=== PATIENT | female | born 1995 | race Caucasian/White ===

== ENCOUNTER 2017-12-11 14:19 | Outpatient (CLI) | payer BC ==
[2017-12-11 14:49] LABS: Appearance,Urine Clear (Clear); Bacteria,Urine Rare /hpf; Bilirubin,Urine Negative (Negative); Blood,Urine Small (Negative); Color,Urine Colorless; Glucose,Urine (UA) Negative (Negative); Ketones,Urine Negative (Negative); Leukocyte Esterase,Urine Negative (Negative); Nitrite,Urine Negative (Negative); Protein,Urine Negative (Negative); RBC,Urine <1 /hpf (0-5); Specific Gravity,Urine 1.003 (1.001-1.035); Squamous Epithelial Cell,Urine <1 /hpf (0-4); Urobilinogen,Urine <2.0 mg/dL (<2.0); WBC,Urine <1 /hpf (0-5)
[2017-12-11 15:39] LABS: ALT 31 U/L (9-52); AST 24 U/L (14-36); Blood Urea Nitrogen 10 mg/dL (7-17); LDH 463 U/L (313-618); Uric Acid 3.6 mg/dL (3.7-7.4)
[2017-12-11 15:50] LABS: Basophils % (A) 0 %; Eosinophils # (A) 0.1 k/uL (0-0.7); Eosinophils % (A) 1 %; HCT 36.6 % (34.0-46.0); HGB 12.1 gm/dL (11.4-16.0); Lymphocytes # (A) 1.5 k/uL (1.0-4.8); Lymphocytes % (A) 15 %; MCH 30.5 pg (25.0-35.0); MCHC 33.2 g/dL (31.0-37.0); MCV 91.9 fL (80.0-100.0); Mean Platelet Volume 9.3; Monocytes # (A) 0.6 k/uL (0-1.0); Monocytes % (A) 7 %; Neutrophils # (A) 7.2 k/uL (1.3-7.7); Neutrophils % (A) 75 %; Platelet Count 186 k/uL (150-450); RBC 3.98 m/uL (3.80-5.40); RDW 13.1 % (11.5-15.5); WBC 9.6 k/uL (3.8-10.6)
[2017-12-11 16:07] VITALS: BP 144/81; PULSE 68; RESP 16; TEMP 97.8
--- NOTE | 2017-12-20 19:37 | P.MSEPDOC ---
Presenting Problems - Arrival Data Date of Arrival on Unit: 12/11/17 Time of Arrival on Unit: 14:19 Mode of Transport: Ambulatory - Complaint OB-Reason for Admission/Chief Complaint: PIH Comment: Pt sent from [facility] for PIH work up, NST and serial BP Medical History - Information : 1 Para: 0 Term: 0 : 0 Abortions: Spontaneous or Elective: 0 Number of Living Children: 0 - Gestational Age Gestational Age by SUSIE (wks/days): 37 Weeks and 5 Days Review of Systems - Review of Systems Constitutional: No problems Breast: No problems ENT: No problems Cardiovascular: No problems Respiratory: No problems Gastrointestinal: No problems Genitourinary: No problems Musculoskeletal: No problems Neurological: No problems Skin: No problems Vital Signs - Temperature Temperature: 97.8 F Temperature Source: Temporal Artery Scan - Pulse Right Sitting Brachial Pulse Rate: 68 Pulse Assessment Method: Automatic Cuff - Respirations Respiratory Rate: 16 Oxygen Delivery Method: Room Air O2 Sat by Pulse Oximetry: 99 - Blood Pressure Right Arm Sitting Blood Pressure: 144/81 Blood Pressure Mean: 102 Blood Pressure Source: Automatic Cuff Medical Screen Scoring (Pre) - Cervical Exam Dilation: Exam Deferred Effacement: Exam Deferred Membranes: Intact - Uterine Contractions Frequency: N/A Duration: N/A Intensity: N/A - Maternal Vital Signs Maternal Temperature: N/A Maternal Blood Pressure: N/A Signs of Preeclampsia: N/A Maternal Respirations: N/A - Maternal Trauma Maternal Trauma: N/A - Assessment Baseline FHR: 120 Heart Rate - NICHD Category: Category I (Normal) = 0 NST: Reactive Position: N/A Station: N/A - Total Score Total Score (Pre): 0 - Level of Risk Level of Risk: Low (0-5) Physician Notification (Pre) - Physician Notified Physician Notified Date: 12/11/17 Physician Notified Time: 15:55 Physician/Practitioner Notifed:: Ayla Spoke With: Ayla New Order Received: Yes - Notification Comment Comment: Reviewed serial BPs, PIH labs, UA and FHT- reactive NST. States pt may be d/c home, to follow up in 1 week, preeclampsia s/sx and labor discharge education. Disposition - Disposition OB Disposition: Discharge to home, Written follow up instructions reviewed Discharge Date: 12/11/17 Discharge Time: 16:00 I agree with the RN Medical Screening Exam: Yes Risk & Benefit of care provided described in d/c instruction: Yes Diagnosis: GESTATIONAL HTN W/O SIGNIFICANT PROTEINURIA, THIRD TRIMESTER
== END 2017-12-11 16:00 | disposition home or self-care (01) ==
LOC: FBPOP 14:19
PROVIDERS: ATTEND Obstetrics & Gynecology Obstetrics
DX: O13.3 Gestational [pregnancy-induced] hypertension without significant proteinuria, third trimester (principal); Z3A.37 37 weeks gestation of pregnancy
CPT/HCPCS: 59025; 81001; 82565; 83615; 84450; 84460; 84520; 84550; 85025; 99215

== ENCOUNTER 2017-12-28 15:09 | Inpatient (IN) | payer BC ==
[2018-01-03] MEDS ORDERED: PENICILLIN G POTASSIUM 5,000,000 UNIT in DEXTROSE 5% IN WATER 100 ML IVPB STA ×2 (06:12)
[2018-01-03] MEDS ORDERED: OXYTOCIN 10 UNIT/ML 1 ML VIAL IM PRN (06:12)
[2018-01-03] MEDS ORDERED: CARBOPROST TROMETHAMINE 250 MCG/ML 1 ML AMP IM PRN (06:12)
[2018-01-03] MEDS ORDERED: TERBUTALINE 1 MG/ML VIAL SQ PRN (06:12)
[2018-01-03] MEDS ORDERED: METHYLERGONOVINE 0.2 MG/ML 1 ML AMP IM PRN (06:12)
[2018-01-03] MEDS ORDERED: LIDOCAINE 1% (PF) 10 MG/ML (30 ML SDV) SQ PRN (06:12)
[2018-01-03 06:25] VITALS: BMI 29.5
[2018-01-03] MEDS: OXYTOCIN 20 UNITS/1000 ML NS 1,000 ML IV SCH (06:34)
[2018-01-03] MEDS: LACTATED RINGERS 1,000 ML IV SCH ×3 (06:35→22:37)
[2018-01-03 06:38] LABS: Basophils % (A) 0 %; Eosinophils # (A) 0.1 k/uL (0-0.7); Eosinophils % (A) 1 %; HCT 38.3 % (34.0-46.0); HGB 13.3 gm/dL (11.4-16.0); Lymphocytes # (A) 1.7 k/uL (1.0-4.8); Lymphocytes % (A) 22 %; MCH 30.9 pg (25.0-35.0); MCHC 34.7 g/dL (31.0-37.0); Mean Platelet Volume 10.3; Monocytes # (A) 0.6 k/uL (0-1.0); Monocytes % (A) 8 %; Neutrophils # (A) 5.3 k/uL (1.3-7.7); Neutrophils % (A) 67 %; Platelet Count 190 k/uL (150-450)
[2018-01-03] MEDS: PENICILLIN G POTASSIUM 2,500,000 UNIT in DEXTROSE 5% IN WATER 100 ML IVPB SCH ×8 (10:28→22:56)
[2018-01-03] MEDS ORDERED: ROPIVACAINE 100 MG, fentaNYL (PF) 200 MCG in SODIUM CHLORIDE 0.9% 76 ML EPIDURAL ONE (22:36)
[2018-01-04] MEDS: PENICILLIN G POTASSIUM 2,500,000 UNIT in DEXTROSE 5% IN WATER 100 ML IVPB SCH ×4 (03:15→06:24)
[2018-01-04] MEDS: OXYTOCIN 20 UNITS/1000 ML NS 1,000 ML IV SCH (08:36)
[2018-01-04] MEDS ORDERED: diphenhydrAMINE 50 MG/ML 1 ML VIAL IVP PRN ×2 (08:49)
[2018-01-04] MEDS ORDERED: WITCH HAZEL 1 EACH MED..PAD TOPICAL PRN (08:49)
[2018-01-04] MEDS ORDERED: diphenhydrAMINE 50 MG CAP PO PRN (08:49)
[2018-01-04] MEDS ORDERED: HYDROCORTISONE 2.5% RECTAL CREAM 30 GM TUBE RECTAL PRN (08:49)
[2018-01-04] MEDS ORDERED: LANOLIN CREAM 5 GM TUBE TOPICAL PRN (08:49)
[2018-01-04] MEDS ORDERED: ZOLPIDEM 5 MG TAB PO PRN (08:49)
[2018-01-04] MEDS ORDERED: BENZOCAINE/MENTHOL SPRAY 1 GM/SPRAY AEROSOL TOPICAL PRN (08:49)
[2018-01-04] MEDS ORDERED: ACETAMINOPHEN TAB 325 MG TAB PO PRN (08:49)
[2018-01-04] MEDS ORDERED: SIMETHICONE 80 MG CHEWABLE PO PRN (08:49)
[2018-01-04] MEDS ORDERED: diphenhydrAMINE 25 MG CAP PO PRN (08:49)
--- NOTE | 2018-01-04 08:53 | P.PROBDLV ---
Vaginal Delivery Note - . Vaginal Delivery Note: This is a very pleasant 22-year-old 1 para 0 at 41 and 1/7 weeks that presented to labor and delivery yesterday for induction of labor secondary to postdates. Patient was begun on Pitocin induction of labor. Amniotomy was performed and clear fluid was obtained. She progressed very slowly through labor eventually becoming uncomfortable around 5 PM and getting an epidural. Patient progressed through the night eventually becoming complete and had a normal spontaneous vaginal delivery of a viable male at 825. Weight of 8 lbs. 4 oz. with Apgars of 9 and 9 at one and 5 minutes respectively. The cord was then doubly clamped and cut the placenta was delivered spontaneously intact with three-vessel cord. The uterus was noted to be firm and below the umbilicus at this time. Inspection the patient's vaginal vault a midline laceration first-degree was noted along with bilateral labial lacerations. These were repaired in the usual fashion with 3-0 repeat, 4-0 chromic. Afterwards inspection revealed hemostasis and no further lacerations. Estimated blood loss 300 mL Patient and infant tolerated delivery well and are resting comfortably.
--- NOTE | 2018-01-04 08:54 | P.HPOB ---
History of Present Illness H&P Date: 01/03/18 Chief Complaint: IUP at 41-0/7 weeks, postterm This is a very pleasant 22-year-old 1 para 0 at 41-0/7 weeks that presents for induction of labor. Patient notes an occasional contraction denies vaginal bleeding and admits to good movement. She has been receiving regular care with myself since the first trimester On blood work showed a blood type of A+, rubella immune, hepatitis B surface engine negative, HIV negative, RPR negative, group beta strep positive. Past Medical History Past Medical History: No Reported History History of Any Multi-Drug Resistant Organisms: None Reported Past Surgical History: No Surgical Hx Reported Past Anesthesia/Blood Transfusion Reactions: No Reported Reaction Smoking Status: Never smoker Past Alcohol Use History: None Reported Past Drug Use History: None Reported - Past Family History Father Family Medical History: No Reported History Medications and Allergies Home Medications Medication Instructions Recorded Confirmed Type Pnv,Calcium 72/Iron/Folic Acid 1 tab PO DAILY 12/11/17 01/03/18 History [ Plus Tablet] Allergies Allergy/AdvReac Type Severity Reaction Status Date / Time No Known Allergies Allergy Verified 01/03/18 06:11 Exam Osteopathic Statement: *. No significant issues noted on an osteopathic structural exam other than those noted in the History and Physical/Consult. Vital Signs Temp Pulse Resp BP Pulse Ox 01/03/18 06:10 97.9 F 89 16 142/87 97 Intake and Output 01/02/18 01/03/18 01/03/18 22:59 06:59 14:59 Other: Weight 90.718 kg - OBG Physical Exam Abdomen: Gravid and appropriate for gestational age Cervix: 2/60/-3 AROM clear fluid was obtained Uterus: enlarged Results Result Diagrams: 01/03/18 06:25 Assessment and Plan (1) Post-dates Current Visit: Yes Status: Acute Code(s): O48.0 - POST-TERM SNOMED Code(s): 37189149 (2) Positive GBS test Current Visit: Yes Status: Acute Code(s): B95.1 - STREPTOCOCCUS, GROUP B, CAUSING DISEASES [facility] SNOM[facility] Code(s): 2569256035899 Plan: Plan Pitocin induction of labor, IV antibiotics given her group beta strep positive culture. Epidural vs stadol is offered for pain control patient will decide and request when ready.
[2018-01-04] MEDS ORDERED: OXYTOCIN 20 UNITS/1000 ML NS 1,000 ML IV SCH (09:00)
[2018-01-04] MEDS: LACTATED RINGERS 1,000 ML IV SCH ×2 (09:08→16:21)
[2018-01-04] MEDS: IBUPROFEN 600 MG TAB PO PRN (17:01)
[2018-01-05] MEDS: SENNOSIDES-DOCUSATE SODIUM 1 EACH TAB PO SCH ×2 (00:23→08:29)
--- NOTE | 2018-01-05 08:05 | P.DS ---
Providers Date of admission: 01/03/18 06:03 Expected date of discharge: 01/05/18 Attending physician: Fozia Aguila - Discharge Diagnosis(es) (1) Post-dates Current Visit: Yes Status: Acute (2) Positive GBS test Current Visit: Yes Status: Acute (3) Status post vaginal delivery Current Visit: Yes Status: Acute Hospital Course: This is a 22yo that presented for induction of labor secondary to psot dates. she was started on pitocin induction of labor, amniotomy was preformed and clear fluid was noted. she made slow progress and eventually became complete. she started pushing and had a of a viable male infant at 825 wt 8-4 apgars 9-9 and 1 and 5 mins respectively. she is doing well post . she is ambulating and voiding without difficulty , tolerating a regular diet without n/v. lochia is moderate. she is feeling well and desires d/c today. Patient Condition at Discharge: Good Plan - Discharge Summary New Discharge Prescriptions: No Action Pnv,Calcium 72/Iron/Folic Acid [ Plus Tablet] 1 tab PO DAILY Discharge Medication List Pnv,Calcium 72/Iron/Folic Acid [ Plus Tablet] 1 tab PO DAILY 12/11/17 [ History] Follow up Appointment(s)/Referral(s): Fozia Aguila DO [Doctor of Osteopathic Medicine] - 4 Weeks Patient Instructions/Handouts: Vaginal Delivery (DC), Vaginal Delivery (GEN) Discharge Disposition: HOME SELF-CARE
[2018-01-05 08:33] VITALS: BP 126/80; PULSE 81; RESP 18; TEMP 97.7
[2018-01-05 08:54] LABS: Basophils % (A) 0 %; Eosinophils # (A) 0.1 k/uL (0-0.7); Eosinophils % (A) 1 %; HCT 34.6 % (34.0-46.0); HGB 11.5 gm/dL (11.4-16.0); Lymphocytes % (A) 14 %; MCH 30.2 pg (25.0-35.0); MCHC 33.1 g/dL (31.0-37.0); MCV 91.2 fL (80.0-100.0); Mean Platelet Volume 9.2; Monocytes # (A) 0.6 k/uL (0-1.0); Monocytes % (A) 4 %; Neutrophils # (A) 11.2 k/uL (1.3-7.7); Neutrophils % (A) 80 %; Platelet Count 171 k/uL (150-450); RDW 13.4 % (11.5-15.5); WBC 14.1 k/uL (3.8-10.6)
[2018-01-05] MEDS: IBUPROFEN 600 MG TAB PO PRN (11:33)
== END 2018-01-05 11:35 | disposition home or self-care (01) | DRG 775 ==
LOC: 4FBP 01-03 06:03
PROVIDERS: ADMIT Obstetrics & Gynecology Obstetrics; ATTEND Obstetrics & Gynecology Obstetrics
PROC: 10E0XZZ Delivery of Products of Conception, External Approach (ICD-10-PCS; principal; 2018-01-04)
PROC: 0HQ9XZZ Repair Perineum Skin, External Approach (ICD-10-PCS; 2018-01-04)
PROC: 10907ZC Drainage of Amniotic Fluid, Therapeutic from Products of Conception, Via Natural or Artificial Opening (ICD-10-PCS; 2018-01-04)
PROC: 3E033VJ Introduction of Other Hormone into Peripheral Vein, Percutaneous Approach (ICD-10-PCS; 2018-01-04)
PROC: 00HU33Z Insertion of Infusion Device into Spinal Canal, Percutaneous Approach (ICD-10-PCS; 2018-01-04)
PROC: 3E0R3BZ Introduction of Anesthetic Agent into Spinal Canal, Percutaneous Approach (ICD-10-PCS; 2018-01-04)
DX: O48.0 Post-term pregnancy (principal); Z37.0 Single live birth; O99.824 Streptococcus B carrier state complicating childbirth; O70.0 First degree perineal laceration during delivery; Z3A.41 41 weeks gestation of pregnancy
CPT/HCPCS: 85025

== ENCOUNTER → 2020-01-28 | Outpatient (CLI) | payer BC ==
--- NOTE | 2020-01-28 10:18 | USB ---
Reason for exam: clinical finding. History: Family history of breast cancer in paternal grandmother at age 45 and breast cancer in paternal aunt. Physical Findings: Nurse did not find any significant physical abnormalities on exam. US Breast RT Right complete breast ultrasound includes all four quadrants, the retroareolar region and axilla. Finding demonstrates a 0.6 x 0.4 x 0.2cm oval, irregular, complex, cystic lesion at 2 o'clock, 1.0 x 0.8 x 0.3cm oval, complex, hypoechoic lesion at 5 o'clock, favor debris filled cyst and a 2.0 x 1.2 x 1.0cm oval, benign lymph node at the axilla. These results were verbally communicated with the patient and result sheet given to the patient on 01/28/20. ASSESSMENT: Probably benign, BI-RAD 3 RECOMMENDATION: Ultrasound of the right breast in 6 months. Manage patient on a clinical basis.
== END | disposition home or self-care (01) ==
LOC: RADUSWWP 07:09
PROVIDERS: ATTEND Obstetrics & Gynecology Obstetrics
DX: N64.4 Mastodynia (principal)

== ENCOUNTER 2021-09-23 05:53 | Inpatient (IN) | payer BC ==
[2021-09-23] MEDS ORDERED: TERBUTALINE 1 MG/ML VIAL SQ PRN (06:14)
[2021-09-23] MEDS ORDERED: LIDOCAINE 1% (PF) 10 MG/ML (30 ML SDV) SQ PRN (06:14)
[2021-09-23] MEDS ORDERED: METHYLERGONOVINE 0.2 MG/ML 1 ML AMP IM PRN (06:14)
[2021-09-23] MEDS ORDERED: CARBOPROST TROMETHAMINE 250 MCG/ML 1 ML AMP IM PRN (06:14)
[2021-09-23] MEDS ORDERED: OXYTOCIN 10 UNIT/ML 1 ML VIAL IM PRN (06:14)
[2021-09-23] MEDS ORDERED: OXYTOCIN 30 UNITS/500 ML NS 30 UNIT in SALINE 1 500ML.BAG IV SCH ×2 (06:15→19:30)
[2021-09-23 06:34] LABS: Basophils % (A) 0 %; Eosinophils # (A) 0.1 k/uL (0-0.7); Eosinophils % (A) 1 %; HCT 38.3 % (34.0-46.0); HGB 12.5 gm/dL (11.4-16.0); Lymphocytes # (A) 1.8 k/uL (1.0-4.8); Lymphocytes % (A) 24 %; MCH 30.3 pg (25.0-35.0); MCHC 32.6 g/dL (31.0-37.0); MCV 93.1 fL (80.0-100.0); Mean Platelet Volume 9.7; Monocytes # (A) 0.5 k/uL (0-1.0); Monocytes % (A) 7 %; Neutrophils # (A) 4.7 k/uL (1.3-7.7); Neutrophils % (A) 65 %; Platelet Count 207 k/uL (150-450); RBC 4.12 m/uL (3.80-5.40); RDW 12.8 % (11.5-15.5); WBC 7.2 k/uL (3.8-10.6)
[2021-09-23] MEDS: LACTATED RINGERS 1,000 ML IV SCH ×3 (06:42→17:51)
--- NOTE | 2021-09-23 12:41 | P.HPOB ---
History of Present Illness H&P Date: 09/23/21 Chief Complaint: IUP at 39 and 0 This is a 26-year-old 2 para 1001 that presents to labor and delivery for induction of labor. Patient has been receiving routine care which has been essentially uncomplicated. Patient did request elective induction of labor. Patient does note good movement, denies contractions vaginal bleeding or loss of fluid. On bloodwork this patient has a blood type of A+, rubella status immune, RPR is nonreactive, hep B surface antigen is negative, HIV is negative, she did pass her 1 hour GDS, group beta strep culture is negative on 09/02. Review of Systems Constitutional: Denies chills, Denies fatigue, Denies fever Ears, nose, mouth and throat: Denies headache Cardiovascular: Reports leg edema Respiratory: Denies dyspnea Gastrointestinal: Denies constipation, Denies diarrhea, Denies nausea, Denies vomiting Genitourinary: Reports Past Medical History Past Medical History: No Reported History History of Any Multi-Drug Resistant Organisms: None Reported Past Surgical History: No Surgical Hx Reported Past Anesthesia/Blood Transfusion Reactions: No Reported Reaction Past Psychological History: No Psychological Hx Reported Smoking Status: Never smoker Past Alcohol Use History: None Reported Past Drug Use History: None Reported - Past Family History Father Family Medical History: No Reported History Medications and Allergies Home Medications Medication Instructions Recorded Confirmed Type Pnv,Calcium 72/Iron/Folic Acid 1 tab PO DAILY 12/11/17 09/23/21 History [ Plus Tablet] Allergies Allergy/AdvReac Type Severity Reaction Status Date / Time No Known Allergies Allergy Verified 09/23/21 06:13 Exam Osteopathic Statement: *. No significant issues noted on an osteopathic structural exam other than those noted in the History and Physical/Consult. Vital Signs Temp Pulse Resp BP Pulse Ox 09/23/21 06:12 97.8 F 76 16 134/84 99 Intake and Output 09/22/21 09/23/21 09/23/21 22:59 06:59 14:59 Other: Weight 91.626 kg Targeted physical exam is done on this date and auto hauler a well-nourished well-developed female in no acute distress, breathing is noted to be nonlabored, heart has a regular rate and rhythm, abdomen is gravid and appropriate for gestational age, on cervical exam she is 1-2/50/-2 station amniotomy is performed and scant fluid was obtained. heart tones are noted to be category 1 and she is jimmy irregularly. Results Result Diagrams: 09/23/21 06:10 Assessment and Plan (1) Term Current Visit: Yes Status: Acute Code(s): Z34.90 - ENCNTR FOR SUPRVSN OF NORMAL , UNSP, UNSP TRIMESTER SNOMED Code(s): 89396475 Plan: 26-year-old at 39-0/7 weeks that presents for elective induction of labor. Patient is admitted to labor and delivery and Pitocin induction of labor is begun. Patient is counseled on options for analgesia including Stadol and epidural. Patient states she will consider. Anticipate spontaneous vaginal delivery later this afternoon.
[2021-09-23] MEDS ORDERED: SIMETHICONE 80 MG CHEWABLE PO PRN (19:29)
[2021-09-23] MEDS ORDERED: ACETAMINOPHEN TAB 325 MG TAB PO PRN (19:29)
[2021-09-23] MEDS ORDERED: LANOLIN CREAM 5 GM TUBE TOPICAL PRN (19:29)
[2021-09-23] MEDS ORDERED: ZOLPIDEM 5 MG TAB PO PRN (19:29)
[2021-09-23] MEDS ORDERED: diphenhydrAMINE 50 MG CAP PO PRN (19:29)
[2021-09-23] MEDS ORDERED: HYDROCORTISONE 2.5% RECTAL CREAM 30 GM TUBE RECTAL PRN (19:29)
[2021-09-23] MEDS ORDERED: diphenhydrAMINE 50 MG/ML 1 ML VIAL IVP PRN ×2 (19:29)
[2021-09-23] MEDS ORDERED: BENZOCAINE/MENTHOL SPRAY 1 GM/SPRAY AEROSOL TOPICAL PRN (19:29)
[2021-09-23] MEDS ORDERED: diphenhydrAMINE 25 MG CAP PO PRN (19:29)
--- NOTE | 2021-09-23 19:29 | P.PROBDLV ---
Vaginal Delivery Note - . Vaginal Delivery Note: This is a 26-year-old 2 para 1 at 39 0/7 weeks that presented to labor and delivery for induction of labor. Patient was admitted to labor and delivery and Pitocin induction of labor was begun. Patient underwent amniotomy and clear fluid was obtained. Patient progressed mostly day eventually making cervical change and becoming uncomfortable. Epidural was placed without difficulty by the anesthesia department. Soon afterwards patient was noted to be completely dilated and she began pushing. Patient had a normal spontaneous vaginal delivery of a viable female at 1905, weight of 7 lbs. 0 oz., Apgars of 9 and 9 at one and 5 minutes respect daily. After two-minute delayed the umbilical cord was doubly clamped and cut and the placenta was delivered spontaneously intact with a three-vessel cord being noted. On inspection the patient's vaginal vault a small first-degree vaginal laceration was appreciated this was repaired in usual fashion after installation of lidocaine. 3-0 Rapide was used to perform the repair. Uterus was noted be firm and below the umbilicus. Estimated blood loss 200 mL. Patient and tolerated delivery well and are resting comfortably. All counts were noted be correct 2 at the end of the delivery.
[2021-09-23] MEDS: SENNOSIDES-DOCUSATE SODIUM 1 EACH TAB PO SCH (20:02)
[2021-09-23] MEDS: IBUPROFEN 600 MG TAB PO SCH (20:02)
[2021-09-24] MEDS: IBUPROFEN 600 MG TAB PO SCH ×3 (04:07→14:49)
--- NOTE | 2021-09-24 07:52 | P.DS ---
Providers Date of admission: 09/23/21 05:53 Expected date of discharge: 09/24/21 Attending physician: Fozia Aguila Primary care physician: Stated None - Discharge Diagnosis(es) (1) Term Current Visit: Yes Status: Acute (2) Status post vaginal delivery Current Visit: No Status: Acute Hospital Course: This is a 26-year-old G2 now P2 that presented to labor and delivery at 39 weeks of gestation for elective induction of labor. Patient was admitted to labor and delivery and Pitocin induction of labor was begun per hospital protocol. Patient underwent amniotomy and clear fluid was obtained. Patient progressed through labor eventually becoming uncomfortable and requesting epidural placement soon after epidural placement patient was noted be completely dilated. Patient was uncomfortable feeling pressure and began pushing. Patient had a normal spontaneous vaginal delivery of a viable female infant at 1905, weight of 7 lbs. 0 oz. Patient did sustain a first degree vaginal laceration during delivery. This was repaired in usual fashion. Patient's course has been uneventful. On this day #1 she is ambulating and voiding without difficulty. She is tolerating a regular diet without nausea or vomiting. She states her pain is well-controlled. She states her lochia is moderate. She would like discharge home at 24 hours. Patient Condition at Discharge: Good Plan - Discharge Summary New Discharge Prescriptions: No Action Pnv,Calcium 72/Iron/Folic Acid [ Plus Tablet] 1 tab PO DAILY Discharge Medication List Pnv,Calcium 72/Iron/Folic Acid [ Plus Tablet] 1 tab PO DAILY 12/11/17 [History] Follow up Appointment(s)/Referral(s): Fozia Aguila DO [Doctor of Osteopathic Medicine] - 4 Weeks Patient Instructions/Handouts: Vaginal Delivery (DC), Vaginal Delivery (GEN) Discharge Disposition: HOME SELF-CARE
[2021-09-24] MEDS ORDERED: ROPIVACAINE 100 MG, fentaNYL (PF). 200 MCG in SODIUM CHLORIDE 0.9% 76 ML EPIDURAL ONE (08:12)
[2021-09-24] MEDS: SENNOSIDES-DOCUSATE SODIUM 1 EACH TAB PO SCH (08:27)
[2021-09-24 09:00] VITALS: RESP 16
[2021-09-24] MEDS ORDERED: PRENATAL VIT-IRON-FOLIC ACID 1 EACH CAP PO SCH (09:00)
[2021-09-24 15:25] VITALS: BP 130/76; PULSE 72; TEMP 97.9
== END 2021-09-24 19:35 | disposition home or self-care (01) | DRG 807 ==
LOC: 4FBP 05:53
PROVIDERS: ADMIT Obstetrics & Gynecology Obstetrics; ATTEND Obstetrics & Gynecology Obstetrics
PROC: 10E0XZZ Delivery of Products of Conception, External Approach (ICD-10-PCS; principal; 2021-09-23)
PROC: 0HQ9XZZ Repair Perineum Skin, External Approach (ICD-10-PCS; 2021-09-23)
PROC: 3E033VJ Introduction of Other Hormone into Peripheral Vein, Percutaneous Approach (ICD-10-PCS; 2021-09-23)
PROC: 10907ZC Drainage of Amniotic Fluid, Therapeutic from Products of Conception, Via Natural or Artificial Opening (ICD-10-PCS; 2021-09-23)
DX: O70.0 First degree perineal laceration during delivery (principal); Z37.0 Single live birth; Z3A.39 39 weeks gestation of pregnancy
CPT/HCPCS: 85025; 86850; 86900; 86901